=== PATIENT | female | born 1965 | race Caucasian/White ===

== ENCOUNTER 2016-12-23 16:01 | Emergency (ER) | payer BC ==
[~2016-12-23] VITALS: Ht 167.6 cm; Wt 83.9 kg
[2016-12-23 16:20] VITALS: BP 114/65
--- NOTE | 2016-12-23 16:54 | RAD ---
Right lower extremity venous ultrasound, 12/23/2016 : History: Right leg pain Duplex evaluation including grayscale, color flow and spectral Doppler analysis was performed. The femoral and popliteal veins show no filling defects to suggest DVT. The visualized deep veins in the right calf are unremarkable. IMPRESSION: There is no sonographic evidence of deep vein thrombosis in the right lower extremity
[2016-12-23] MEDS ORDERED: HYDR-2758 PO (17:11)
--- NOTE | 2016-12-23 17:13 | PHYS DOC ---
Past Medical History Past Medical History: DVT Past Surgical History: , Other Additional Past Surgical Histo: abdominoplasty 12/10/16 Drug Use: None Adult General Chief Complaint Chief Complaint: LOWER EXT PAIN HPI HPI 51-year-old female presenting to the emergency department today with unilateral leg swelling and pain. She has a history of DVT and recently had a surgery. The pain is mild to moderate intermittent and associated with swelling. She denies any new rashes on the leg. She denies any recent traumatic injury. The pain is nonradiating. Review of systems is negative for chest pain shortness of breath abdominal pain nausea vomiting. All other review of systems is negative unless otherwise noted in history of present illness. ED course: 51-year-old female presenting to the emergency department today with unilateral leg pain or swelling. Ultrasound obtained of the extremity which did not show any evidence of DVT. I recommend the patient get a repeat ultrasound in 7-14 days if her symptomatology continues in outpatient clinic. The patient was then discharged home in stable condition to follow up with their primary care physician over the next 2-3 days. They were to return if their symptoms worsened or if they were concerned for any reason. [id number] discharge instructions and return precautions were given. Patient's questions were answered to their satisfaction. Patient is comfortable plan. Review of Systems Review of Systems SEE ABOVE. Allergies Allergies Allergies Coded Allergies Type Severity Reaction Last Updated Verified No Known Drug Allergies 12/23/16 No Physical Exam Physical Exam SEE ABOVE Constitutional: Well developed, well nourished, no acute distress, non-toxic appearance. [] HENT: Normocephalic, atraumatic, bilateral external ears normal, oropharynx moist, no oral exudates, nose normal. [] Eyes: PERRLA, EOMI, conjunctiva normal, no discharge. [] Neck: Normal range of motion, no tenderness, supple, no stridor. [] Cardiovascular:Heart rate regular rhythm, no murmur [] Lungs & Thorax: Bilateral breath sounds clear to auscultation [] Abdomen: Bowel sounds normal, soft, no tenderness, no masses, no pulsatile masses. [] Skin: Warm, dry, no erythema, no rash. [] Back: No tenderness, no CVA tenderness. [] Extremities: Patient has swelling in the right lower extremity trace edema. Palpable pulse with normal neurovascular status. 2 second cap refill. Otherwise nontender knee with normal range of motion. The remainder of the extremities are atraumatic with normal cap refill and neurovascularly intact. Neurologic: Alert and oriented X 3, normal motor function, normal sensory function, no focal deficits noted. [] Psychologic: Affect normal, judgement normal, mood normal. [] Current Patient Data Vital Signs Vital Signs Date Time Temp Pulse Resp B/P (MAP) Pulse Ox O2 Delivery O2 Flow Rate FiO2 12/23/16 16:20 97.8 69 20 114/65 (81) 98 Room Air 97.8 EKG EKG [] Radiology/Procedures Radiology/Procedures [] Course & Med Decision Making Course & Med Decision Making Pertinent Labs and Imaging studies reviewed. (See chart for details) [] Dragon Disclaimer Dragon Disclaimer This electronic medical record was generated, in whole or in part, using a voice recognition dictation system. Departure Departure Impression: Primary Impression: Right leg pain Disposition: HOME, SELF-CARE Condition: STABLE Referrals: UNKNOWN PCP NAME (PCP) SANJUANA PERERA MD Additional Instructions: Thank you for allowing us to participate in your care today. Followup with your primary care physician in 3 days if your symptoms do not improve. Call your Primary Doctor tomorrow and inform them of your visit today. If you do not have a primary care provider you can ask for a list of our primary care providers. Return to the emergency department you have any new or concerning findings. This should be evaluated by the primary care physician and any necessary consulting services for continued management within a few days after discharge. Return to emergency room if you have any new or concerning symptoms including but not limited to fever, chills, nausea, vomiting, intractable pain, any new rashes, chest pain, shortness of air, uncontrolled bleeding, difficulty breathing, and/or vision loss. Scripts Hydrocodone Bit/Acetaminophen (HYDROCODONE-APAP 5-325 ) 1 Each Tablet 1 TAB PO PRN Q6HRS Y for PAIN, #15 TAB 0 Refills Be careful as this medication may cause you to be drowsy or tired. Do not drive on this medication. Prov: ANTWON OJEDA MD 12/23/16 ANTWON OJEDA MD Dec 23, 2016 17:13
== END 2016-12-23 17:41 | disposition home or self-care (01) ==
LOC: ER 16:01
DX: M79.661 Pain in right lower leg (principal); R60.0 Localized edema; M79.89 Other specified soft tissue disorders; Z86.718 Personal history of other venous thrombosis and embolism
CPT/HCPCS: 93971; 99284-25

== ENCOUNTER → 2018-02-18 | Outpatient (CLI) | payer BC ==
[~2018-02-18] MED LIST: HYDR-2758 PO
--- NOTE | 2018-02-18 09:56 | KCIC ---
EXAM: Bilateral screening mammogram. HISTORY: 52-year-old female presents for screening mammography. TECHNIQUE: Full-field digital craniocaudal and mediolateral oblique views of both breasts are obtained for evaluation. Computer aided detection with [employer]D software version 9.3 was applied. COMPARISON: There is no recent study for comparison. This exam serves as a new baseline mammogram. BREAST PARENCHYMAL DENSITY: Level C - Heterogeneously dense. FINDINGS: There is focal density within the 6:00 position of the left breast at mid depth. There is a small asymmetry lateral and anterolateral to this location to this location in the craniocaudal projection. There is no suspicious calcifications or distortion within either breast. IMPRESSION: BI-RADS Category 0: Additional imaging needed. RECOMMENDATION: Further evaluation with spot compression views of the left breast to assess focal density at the 6:00 position at mid depth and small asymmetry lateral and slightly posterior to this location is recommended. Sonographic imaging can also be performed if deemed indicated based on additional mammographic findings. If your mammogram demonstrates that you have dense breast tissue, which could hide abnormalities, and if you have other risk factors for breast cancer that have been identified, you might benefit from supplemental screening tests that may be suggested by your ordering physician. Dense breast tissue, in and of itself, is a relatively common condition. This information is not provided to cause undue concern, but rather to raise your awareness and to promote discussion with your physician regarding the presence of other risk factors, in addition to dense breast tissue. A report of your mammography results will be sent to you and your physician. You should contact your physician if you have any questions or concerns regarding this report. Mammography is a sensitive method for finding small breast cancers, but it does not detect them all and is not a substitute for careful clinical examination. A negative mammogram does not negate a clinically suspicious finding and should not result in delay in biopsying a clinically suspicious abnormality. PQRS compliance statement - Patient information was entered into a reminder system with a target due date for the next mammogram. "Our facility is accredited by the [employer] Mammography [employer]." Electronically signed by: Anna Blevins MD (02/18/2018 9:53 AM) [id number]
== END | disposition home or self-care (01) ==
LOC: KCIC MAMMO 08:15
PROVIDERS: ATTEND Family Medicine
DX: Z12.31 Encounter for screening mammogram for malignant neoplasm of breast (principal)
CPT/HCPCS: 77067